=== PATIENT | male | born 1965 ===

== ENCOUNTER 2018-02-25 19:04 | Emergency (ER) | payer OTHER ==
[2018-02-25 19:12] VITALS: BP 133/80; PULSE 74; RESP 16; TEMP 98.8; O2SAT 98
[2018-02-25] MEDS ORDERED: Tdap Vaccine 0.5 ml Vial (10-64 yrs) IM ONE ×2 (20:07→20:59)
--- NOTE | 2018-02-25 20:24 | ED PDOC ---
HPI: Trauma/Fall - HPI Time Seen by Provider: 02/25/18 19:27 Chief Complaint (Nursing): Trauma Chief Complaint (Provider): Trauma History Per: Patient History/Exam Limitations: no limitations Onset/Duration Of Symptoms: Days (x last night) Additional Complaint(s): Patient is 52 year old male who presents to the ED with laceration to his right scalp s/p slipped and fell to the edge of the wall at his home last night, (+) headache. Otherwise: (-) nausea, (-) vomiting, (-) loss of consciousness, (-) neck pain, (-) other injury. Denies taking medication today. As per patient, last tetanus shot more than 5 years. Past Medical History Reviewed: Historical Data, Nursing Documentation, Vital Signs Vital Signs: Last Vital Signs Temp 98.8 F 02/25/18 19:09 Pulse 74 02/25/18 19:09 Resp 16 02/25/18 19:09 BP 133/80 02/25/18 19:09 Pulse Ox 98 02/25/18 19:09 - Medical History PMH: No Chronic Diseases - Surgical History Other surgeries: Left eye surgery - Family History Family History: States: Unknown Family Hx - Allergies Allergies/Adverse Reactions: Allergies Allergy/AdvReac Type Severity Reaction Status Date / Time No Known Allergies Allergy Verified 02/25/18 19:09 Review of Systems ROS Statement: Except As Marked, All Systems Reviewed And Found Negative Gastrointestinal: Negative for: Nausea, Vomiting Neurological: Positive for: Headache. Negative for: Other (loss of consciousness) Physical Exam - Reviewed Nursing Documentation Reviewed: Yes Vital Signs Reviewed: Yes - Physical Exam Comments: GENERAL APPEARANCE: Patient is awake, alert, oriented x 3, in no acute distress. SKIN: Warm, dry; (-) cyanosis; (-) rash. HEAD: (+) 4 cm laceration on the right parietal scalp that appears to be already healing EYES: (-) conjunctival pallor, (-) scleral icterus. ENMT: (-) sinus tenderness; mucous membranes moist. NECK: (-) tenderness, (-) stiffness, (-) meningismus, (-) lymphadenopathy. CHEST AND RESPIRATORY: (-) rales, (-) rhonchi, (-) wheezes; breath sounds equal bilaterally. HEART AND CARDIOVASCULAR: (-) irregularity; (-) murmur, (-) gallop. ABDOMEN AND GI: Soft; (-) tenderness. EXTREMITIES: (-) deformity. NEURO AND PSYCH: Mental status as above. 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 - ECG O2 Sat by Pulse Oximetry: 98 (RA) Pulse Ox Interpretation: Normal Medical Decision Making Medical Decision Making: Time: 20:07 Plan: - CT Head w/o Contrast - Adacel (10-64 years) 0.5 ml IM - Tylenol 325 mg Tab The wound is the R parietal scalp. The wound was copiously irrigated with normal saline. The wound was prepped and draped in the normal sterile fashion. The wound was explored for foreign bodies and none were found. The wound was anesthetised using lidocaine w/ epi. The edges were reapproximated using 3 surgical nisha by PA Bleeding was well controlled and the patient tolerated the procedure well. CT head : FINDINGS: Brain: Unremarkable. Ventricles: Unremarkable. Bones/joints: Unremarkable. No acute fracture. Soft tissues: Skin nisha at the right parietal scalp. Sinuses: Unremarkable as visualized. Mastoid air cells: Unremarkable as visualized. IMPRESSION: No acute intracranial pathology or traumatic injury. Dictated and Authenticated by: Bubba Heard MD 02/25/2018 9:30 PM Eastern Time ([place] & [place]) On reevaluation, patient is resting comfortably no distress. Patient remains awake, alert, oriented 3, repeat neuro exam shows no acute focal findings. CT results discussed with patient in detail. Based on history, exam and diagnostic results plan will be for outpatient follow up. Advised to follow up with primary care physician or the clinic in 1-2 days without fail. Return to the emergency room at any time for any new or worsening symptoms. Patient states she fully agrees with and understands discharge instructions. States that she agrees with the plan and disposition. Verbalized and repeated discharge instructions and plan. I have given the patient opportunity to ask any additional questions. Scribe Attestation: Documented by Matt Lewis, acting as a scribe for Safia Sears PA-C. Provider Scribe Attestation: All medical record entries made by the Scribe were at my direction and personally dictated by me. I have reviewed the chart and agree that the record accurately reflects my personal performance of the history, physical exam, medical decision making, and the department course for this patient. I have also personally directed, reviewed, and agree with the discharge instructions and disposition. Disposition - Clinical Impression Clinical Impression: Head trauma, Scalp laceration - Patient ED Disposition Is Patient to be Admitted: No Counseled Patient/Family Regarding: Studies Performed, Diagnosis, Need For Followup - Disposition Referrals: [facility] [Outside] Disposition: Routine/Home Disposition Time: 21:45 Condition: STABLE Additional Instructions: Thank you for letting us take care of you today. You were treated for head trauma, scalp laceration. The emergency medical care you received today was directed at your acute symptoms. Have nisha removed after 7 days. It may take several days for your symptoms to resolve. Return to the Emergency Department if your symptoms worsen, do not improve, or if you have any other problems. Please contact your doctor in 2 days for re-evaluation and follow up / or call one of the physicians/clinics you have been referred to that are listed on the Patient Visit Information form that is included in your discharge packet. Bring any paperwork you were given at discharge with you along with any medications you are taking to your follow up visit. Our treatment cannot replace ongoing medical care by a primary care provider (PCP) outside of the emergency department. Thank you for allowing the [facility] team to be part of your care today. If you had a CT scan: A Radiologist will review the ED reading if any change in treatment is needed we will contact you. Instructions: Laceration Repair, Closed Head Injury (DC) Forms: [employer] (Botswanan) Print Language: MARTINIQUAIS
--- NOTE | 2018-02-26 09:19 | CT ---
PROCEDURE: CT HEAD WITHOUT CONTRAST. HISTORY: trauma COMPARISON: None available. TECHNIQUE: Axial computed tomography images were obtained through the head/brain without intravenous contrast. Radiation dose: Total exam DLP = 813.8 mGy-cm. This CT exam was performed using one or more of the following dose reduction techniques: Automated exposure control, adjustment of the mA and/or kV according to patient size, and/or use of iterative reconstruction technique. FINDINGS: HEMORRHAGE: No intracranial hemorrhage. BRAIN: No mass effect or edema. Mild atrophy. No chronic microvascular ischemic changes. VENTRICLES: Unremarkable. No hydrocephalus. CALVARIUM: Unremarkable. PARANASAL SINUSES: Unremarkable as visualized. No significant inflammatory changes. MASTOID AIR CELLS: Unremarkable as visualized. No inflammatory changes. OTHER FINDINGS: Right parietal scalp laceration with skin nisha. IMPRESSION: No acute intracranial pathology.
== END 2018-02-25 22:02 | disposition home or self-care (01) ==
LOC: H.ER 19:04
DX: S09.90XA Unspecified injury of head, initial encounter (principal); S01.01XA Laceration without foreign body of scalp, initial encounter; W01.0XXA Fall on same level from slipping, tripping and stumbling without subsequent striking against object, initial encounter; Y92.89 Other specified places as the place of occurrence of the external cause

== ENCOUNTER 2018-10-24 12:06 | Emergency (ER) | payer SELFPAY ==
[2018-10-24] MEDS ORDERED: PROPARACAINE/FLUORESCEIN SOD 100 DROP/5 ML BOTTLE OD STA (14:04)
[2018-10-24] MEDS ORDERED: PROPARACAINE/FLUORESCEIN SOD 100 DROP/5 ML BOTTLE ONE (14:22)
--- NOTE | 2018-10-24 14:24 | ED PDOC ---
HPI: General Adult Time Seen by Provider: 10/24/18 12:16 Chief Complaint (Nursing): Foreign Body Chief Complaint (Provider): Foreign Body in Left Hand and Right Eye Discomfort History Per: Patient History/Exam Limitations: no limitations Onset/Duration Of Symptoms: Days (yesterday and today) Current Symptoms Are (Timing): Still Present Additional Complaint(s): 53 year old male with no significant past medical history presents to the ED with right eye discomfort onset yesterday and foreign body in left hand onset today. Yesterday, while patient was at home, he felt like dust got stuck in his eye. Initially, his eye was only irritated, but this morning upon waking up, the irritation subsided and he noted redness to the eye. He denies any visual changes, headache, dizziness, nausea, vomiting, wearing contacts or glasses. Today at work, he was using a nail gun when he accidently shot a nail into his left palm at the base of the 3rd finger. Patient is seeking wound evaluation and reports he was unable to move the left 3rd digit. He denies any loss of sensatio n, fever, chills, pus drainage or any other hand injury. PMD: none Past Medical History Reviewed: Historical Data, Nursing Documentation, Vital Signs Vital Signs: Last Vital Signs Temp 97.9 F 10/24/18 12:16 Pulse 64 10/24/18 12:16 Resp 18 10/24/18 12:16 BP 147/93 H 10/24/18 12:16 Pulse Ox 99 10/24/18 12:16 - Medical History PMH: No Chronic Diseases - Surgical History Surgical History: No Surg Hx - Family History Family History: States: Unknown Family Hx - Immunization History Hx Tetanus Toxoid Vaccination: Yes - Home Medications Home Medications: Ambulatory Orders Medication Instructions Recorded Cephalexin [cephalexin] 500 mg PO TID #21 cap 10/24/18 RX: Ibuprofen [Motrin Tab] 800 mg PO Q8 PRN #21 tab 10/24/18 RX: Tobramycin 0.3% [Tobrex 0.3% 1 drop OD Q6 #1 bottle 10/24/18 Ophth Soln] - Allergies Allergies/Adverse Reactions: Allergies Allergy/AdvReac Type Severity Reaction Status Date / Time No Known Allergies Allergy Verified 02/25/18 19:09 Review of Systems ROS Statement: Except As Marked, All Systems Reviewed And Found Negative Constitutional: Negative for: Fever, Chills Eyes: Positive for: Pain (right), Redness (right eye). Negative for: Vision Change Gastrointestinal: Negative for: Nausea, Vomiting Musculoskeletal: Positive for: Hand Pain (left hand pain with a foreign body) Physical Exam - Reviewed Nursing Documentation Reviewed: Yes Vital Signs Reviewed: Yes - Physical Exam Comments: GENERAL APPEARANCE: Patient is awake, alert, oriented x 3, uncomfortable appearing. SKIN: Warm, dry; (-) cyanosis. HEENT: (-) facial swelling and erythema, (-) facial blisters (-) periorbital edema, erythema, or warmth. VISUAL ACUITIES: Bilateral: 20/20;Left eye: 20/30 ; Right eye: 20/40. LIDS & LASHES: Normal. (-) crusting PUPILS: Pupils equal and reactive. EOM's: Intact and painless. LID EVERSION: (-) foreign body. CONJUNCTIVAE: Erythema to the lateral conjunctiva of the right eye. ANTERIOR CHAMBER: (-) foreign body, (-) hyphema, (-) chemosis FLUORESCEIN: (+)uptake in a linear distribution to 9 oclock position measuring 2mm. CHEST AND RESPIRATORY: (-) rales, (-) rhonchi, (-) wheezes; breath sounds equal bilaterally. Respirations even and nonlabored, speaking in full sentences. HEART AND CARDIOVASCULAR: (-) irregularity LEFT HAND: Linear foreign body embedded into the palmar aspect of left hand over the distal third metacarpal. Left third digit is stuck in a flexed position at the PIP. Sensation intact throughout, capillary refill intact. Remainder of upper extremity is nontender with full ROM. (+) pulses (+) sensation LEFT ELBOW, SHOULDER AND WRIST: Full ROM. NEURO AND PSYCH: Mental status as above. Gait: steady. Speech: clear. (-) facial asymmetry (-) aphasia. - Laboratory Results Result Diagrams: 10/24/18 17:56 10/24/18 17:56 - ECG ECG Rhythm: Positive for: Sinus Rhythm (normal) Interpretation Of ECG: QTC 436 Rate: 60 O2 Sat by Pulse Oximetry: 99 (RA) Pulse Ox Interpretation: Normal Medical Decision Making Medical Decision Making: Time: 1405 Clinical Impression: Conjunctival irritation and foreign body in hand Initial Plan: --Flucaine eye drop --Ultram 50 mg PO (Not driving) --Left hand XR 1505 PROCEDURE: Left Hand Radiographs. HISTORY: FB in area of 3rd metacarpal COMPARISON: None. FINDINGS: BONES: No fracture identified. The foreign body/needle fragment cannot be cleared from the proximal phalanx and therefore should be considered to violated the periosteum. JOINTS: Normal. No osteoarthritic changes. SOFT TISSUES: Foreign body common needle fragment in the soft tissues at the level of the proximal phalanx left 3rd digit. OTHER FINDINGS: None. IMPRESSION: Foreign body soft tissues as clinically suspected, this needle fragment appears to violate the periosteum. 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 Wound irrigated with saline. Bacitracin, telfa, and cling dressing applied. 1645 Case discussed with surgical dental assistant, Anuj Richards, covering for Dr Viramontes. Agreeable to evaluation in ED. 1700 founder and president at bedside. See consult note. NPO status ordered. 1725 CBC, BMP, coag profile, EKG, CXR ordered for pre-op clearance. 1745 Removal of FB attempted at bedside in ED by surgical dental assistant. Lidocaine 1% with epi ordered. If unable to remove FB, patient to go to OR for removal. 1810 FB removed in its entirety by surgical dental assistant. Dressing placed s/p procedure. Repeat XRs ordered to confirm removal of FB. Labs reviewed and grossly unremarkable. CXR: (-) acute disease. 1930 Repeat hand XR: (-) foreign body Discussed with surgical dental assistant Thony Patel, who states patient is stable for outpatient follow up with Dr Viramontes in office. 194 On re-evaluation, patient reports improvement of symptoms. On exam, patient remains AAOx3, in no acute distress. Vitals stable. Lab /Diagnostic results d/w the patient in great detail. Diagnosis of FB of hand- removed, conjunctival abrasion d/w the patient. Based on history, exam and diagnostic results, plan will be for outpatient follow up with zeynep), ophtho, clinic. Patient instructed to follow-up with pmd / referral provided / the clinic in 1- 2 days without fail. Advised to take medication as prescribed. Return to the emergency room at any time for any new or worsening symptoms. Patient states he fully agrees with and understands discharge instructions. States that he agrees with the plan and disposition. Verbalized and repeated discharge instructions and plan. I have given the patient opportunity to ask any additional questions. Scribe Attestation: Documented by Janeen Abraham, acting as a scribe for Kiersten Mejia PA-C. Provider Scribe Attestation: All medical record entries made by the Scribe were at my direction and personally dictated by me. I have reviewed the chart and agree that the record accurately reflects my personal performance of the history, physical exam, medical decision making, and the department course for this patient. I have also personally directed, reviewed, and agree with the discharge instructions and disposition. Disposition - Clinical Impression Clinical Impression: Foreign body in hand, Conjunctival abrasion, Eye irritation, Puncture wound of hand, left - Patient ED Disposition Is Patient to be Admitted: No Counseled Patient/Family Regarding: Studies Performed, Diagnosis, Need For Followup, Rx Given - Disposition Referrals: Delilah Viramontes MD [Staff Provider] - Barry Guillermo MD [Staff Provider] - [facility] [Outside] Disposition: Routine/Home Disposition Time: 19:40 Condition: IMPROVED Additional Instructions: La atencin mdica de emergencia que recibi hoy se dirigi a simona sntomas agudos. Si le recetaron algn medicamento, llnelo y tmelo segn las indicaciones. Los sntomas pueden tardar varios rogel en resolverse. Regrese al Departamento de Emergencias si simona sntomas empeoran, no mejoran o si tiene otros problemas. Comunquese con ibarra mdico dentro de 2 rogel para saloni nueva evaluacin y coleman un seguimiento o llame a hayley de los mdicos / clnicas a los que springer sido referido y que figuran en el formulario de Informacin de visita al paciente que se incluye en ibarra paquete de jose alfredo. Lleve con usted a ibarra consulta de seguimiento toda la documentacin que recibi del jose alfredo junto con los medicamentos que est tomando. Nuestro tratamiento no puede reemplazar la atencin mdica continua por parte de un proveedor de atencin primaria (PCP) fuera del departamento de em ergencias. Prescriptions: Cephalexin [cephalexin] 500 mg PO TID #21 cap RX: Ibuprofen [Motrin Tab] 800 mg PO Q8 PRN #21 tab PRN Reason: Pain, Moderate (4-7) RX: Tobramycin 0.3% [Tobrex 0.3% Ophth Soln] 1 drop OD Q6 #1 bottle Instructions: Corneal Abrasion, Wound Care, Foreign Body in Skin, Removal of Foreign Body in Skin Forms: [employer] ([place]) Print Language: PRYDEINIG - POA Present On Arrival: Falls Or Trauma (shot with nail gun) Results - Lab Results Lab Results: 10/24/18 10/24/18 10/24/18 17:56 17:56 17:56 WBC 4.3 L RBC 4.81 Hgb 14.0 Hct 42.3 MCV 87.9 MCH 29.2 MCHC 33.2 RDW 13.5 Plt Count 165 MPV 8.6 PT 11.9 INR 1.0 APTT 34.8 Sodium 140 Potassium 3.6 Chloride 107 Carbon Dioxide 24 Anion Gap 13 BUN 20 Creatinine 0.6 L Est GFR ( Amer) > 60 Est GFR (Non-Af Amer) > 60 Random Glucose 90 Calcium 8.9
--- NOTE | 2018-10-24 15:51 | RAD ---
PROCEDURE: Left Hand Radiographs. HISTORY: FB in area of 3rd metacarpal COMPARISON: None. FINDINGS: BONES: No fracture identified. The foreign body/needle fragment cannot be cleared from the proximal phalanx and therefore should be considered to violated the periosteum. JOINTS: Normal. No osteoarthritic changes. SOFT TISSUES: Foreign body common needle fragment in the soft tissues at the level of the proximal phalanx left 3rd digit. OTHER FINDINGS: None. IMPRESSION: Foreign body soft tissues as clinically suspected, this needle fragment appears to violate the periosteum.
[2018-10-24] MEDS ORDERED: Tobramycin 0.3% OPHT SOLN OD ONE (16:30)
--- NOTE | 2018-10-24 17:27 | CP.PCM.CON ---
History of Present Illness - History of Present Illness History of Present Illness: Surgery: Dr. Viramontes CC: Foreign body L hand HPI: 53M with no pmh presents to ED with foreign body in L hand. He states that earlier today he shot a nail gun into the palm of his hand. He comes in with complaints of pain and his L 3rd finger is stuck in the flexed position. He denies numbness/parethesias. XR in ED was positive for foreign body. PMH: none PSH: none Meds: None NKDA Social: No etoh,tobacco,drugs Fhx: non-contributory Review of Systems - Review of Systems All systems: reviewed and no additional remarkable complaints except (HPI) Past Patient History - Past Social History Smoking Status: Never Smoked - PSYCHIATRIC Hx Substance Use: No - SURGICAL HISTORY Hx Surgeries: Yes Other/Comment: left eye surgery - ANESTHESIA Hx Anesthesia: No Meds Allergies/Adverse Reactions: Allergies Allergy/AdvReac Type Severity Reaction Status Date / Time No Known Allergies Allergy Verified 02/25/18 19:09 Physical Exam - Constitutional Appears: Non-toxic, No Acute Distress - Head Exam Head Exam: ATRAUMATIC, NORMOCEPHALIC - Eye Exam Eye Exam: EOMI - ENT Exam ENT Exam: Mucous Membranes Moist - Respiratory Exam Respiratory Exam: NORMAL BREATHING PATTERN. absent: Accessory Muscle Use, Respiratory Distress - Cardiovascular Exam Cardiovascular Exam: REGULAR RHYTHM - GI/Abdominal Exam GI & Abdominal Exam: Soft. absent: Tenderness - Extremities Exam Additional comments: L Hand, + puncture on the palmar aspect over 3rd MCP, finger is stuck in flexed position at pip, sensation intact, cap refill<2 sec, distal pulses palpable - Neurological Exam Neurological exam: Alert, Oriented x3 - Psychiatric Exam Psychiatric exam: Normal Affect, Normal Mood - Skin Skin Exam: Dry, Normal Color, Warm Results - Vital Signs Recent Vital Signs: Last Vital Signs Temp 97.9 F 10/24/18 12:16 Pulse 64 10/24/18 12:16 Resp 18 10/24/18 12:16 BP 147/93 H 10/24/18 12:16 Pulse Ox 99 10/24/18 17:16 Assessment & Plan - Assessment and Plan (Free Text) Assessment: 53M w. foreign body in L hand -Tentative OR this evening -NPO -Pre-op labs -EKG/CXR -d/w attending Zemaitis PGY4
[2018-10-24] MEDS ORDERED: Lidocaine/Epi 1% 1:100000 20 ML IJ ONE (17:48)
[2018-10-24] MEDS ORDERED: Lidocaine 1% w Epi 1:100,000 Inj ONE (17:49)
[2018-10-24] MEDS ORDERED: Povidone Iodine Topical 10% Sol ONE (17:53)
[2018-10-24 18:02] LABS: MEAN CELL VOLUME 87.9 fl (80.0-94.0); MEAN CORPUSCULAR HEMOGLOBIN 29.2 pg (27.0-31.0); MEAN CORPUSCULAR HGB CONC 33.2 g/dL (33.0-37.0); MEAN PLATELET VOLUME 8.6 fl (7.2-11.7); RBC 4.81 Mil/uL (4.40-5.90); RED CELL DISTRIBUTION WIDTH 13.5 % (11.5-14.5); WHITE BLOOD COUNT 4.3 K/uL (4.8-10.8)
[2018-10-24 18:14] LABS: BLOOD UREA NITROGEN 20 mg/dl (9-20); CALCIUM 8.9 mg/dL (8.4-10.2); GFR NON-AFRICAN AMERICAN > 60
--- NOTE | 2018-10-24 18:16 | PCM.PROC ---
Procedures Attestation:: I certify that I have explained the specified Operation(s) or Procedure(s), risks, benefits and reasonable alternatives to the Patient and/or other person responsible. The opportunity was given to ask questions and all questions answered - Foreign Body Removal Consent Obtained: written consent Time Out Performed: Yes Site: left, hand Description of foreign body: other (nail) Sedation/Analgesia: other (1& lidocaine w. epi) Technique: incision made to facilitate removal (Incision w. 11 blade scalple was made over foreign body, nail was grasped with nelson and removed) Confirmed by:: radiograph Complications:: None Post-procedure exam: Awake, alert, Normal BP, Normal HR, Normal O2 sat Neurovascular: Normal distal pulse, Distal light touch sensation intact, Distal motor function normal, No signs of compartment syndrome, No change from pre- procedure
[2018-10-24 18:40] LABS: PROTHROMBIN TIME 11.9 Seconds (9.8-13.1)
[2018-10-24 18:41] LABS: PARTIAL THROMBOPLASTIN TIME 34.8 Seconds (25.6-37.1)
[2018-10-24 20:00] VITALS: BP 142/81; RESP 15; TEMP 98.1
[2018-10-24 20:16] VITALS: PULSE 60; O2SAT 99
--- NOTE | 2018-10-25 12:14 | RAD ---
Date of service: 10/24/2018 HISTORY: pre-op COMPARISON: No prior. FINDINGS: LUNGS: No active pulmonary disease. PLEURA: No significant pleural effusion identified, no pneumothorax apparent. CARDIOVASCULAR: No atherosclerotic calcification present Normal. OSSEOUS STRUCTURES: No significant abnormalities. VISUALIZED UPPER ABDOMEN: Normal. OTHER FINDINGS: None. IMPRESSION: No active disease.
--- NOTE | 2018-10-25 12:15 | RAD ---
PROCEDURE: Left Hand Radiographs. HISTORY: s/p removal of FB COMPARISON: None. FINDINGS: BONES: Normal. No fracture. JOINTS: Normal. No osteoarthritic changes. SOFT TISSUES: Foreign body has been removed in its entirety. OTHER FINDINGS: None. IMPRESSION: Status post extraction of foreign body. No residual foreign body noted. No underlying osseous or articular abnormality.
--- NOTE | 2018-10-25 15:21 | CARD ---
APPROVED REPORT Date of service: 10/24/2018 EKG Measurement Heart [id number] MD [id number] <Conclusion> Normal sinus rhythm Normal ECG
== END 2018-10-24 19:59 | disposition home or self-care (01) ==
LOC: H.ER 12:06
DX: S61.442A Puncture wound with foreign body of left hand, initial encounter (principal); S05.00XA Injury of conjunctiva and corneal abrasion without foreign body, unspecified eye, initial encounter; X58.XXXA Exposure to other specified factors, initial encounter; Y99.0 Civilian activity done for income or pay; W29.4XXA Contact with nail gun, initial encounter